=== PATIENT | female | born 1995 | race African-American/Black ===

== ENCOUNTER 2018-05-08 12:37 | Emergency (ER) | payer OTHER ==
[2018-05-08 12:59] VITALS: BP 125/72
--- NOTE | 2018-05-09 07:18 | UC ---
Kaela Otto Elizabeth, scribed for Elis Ramires DO on 05/08/18 at 1333 . Throat Pain/Nasal Sourav HPI - HPI Summary HPI Summary: This patient is a 22 year old F presenting to [facility] with a chief complaint of nonproductive, bronchospastic cough since 7 days ago. The patient notes that her cough has started to interfere with her sleep. The patient rates the pain 4/ 10 in severity. Symptoms aggravated by nothing. Symptoms alleviated by nothing. Patient reports right flank pain, nasal congestion, and a sore throat that resolved 2 days ago. - History of Current Complaint Chief Complaint: UCGeneralIllness Stated Complaint: SORE THROAT,COUGH Time Seen by Provider: 05/08/18 12:39 Hx Obtained From: Patient Hx Last Menstrual Period: 05/07/18 Onset/Duration: Gradual Onset, Lasting Weeks - 1 week, Still Present Severity: Mild Pain Intensity: 4 Pain Scale Used: 0-10 Numeric Cough: Nonproductive Associated Signs & Symptoms: Positive: Nasal Discharge Related History: Seasonal Allergies - Allergies/Home Medications Allergies/Adverse Reactions: Allergies Allergy/AdvReac Type Severity Reaction Status Date / Time No Known Allergies Allergy Verified 05/08/18 12:51 Home Medications: Home Medications Cetirizine HCl [Zyrtec] 10 mg PO DAILY 05/08/18 [History Confirmed 05/08/18] PMH/Surg Hx/FS Hx/Imm Hx Other Respiratory History: seasonal allegies - Surgical History Surgical History: None - Family History Known Family History: Negative: Blood Disorder - Social History Alcohol Use: None Substance Use Type: None Smoking Status (MU): Never Smoked Tobacco - Immunization History Vaccination Up to Date: Yes Review of Systems Constitutional: Negative - NEGATIVE FEVER ENT: Sore Throat, Sinus Congestion Respiratory: Cough Genitourinary: Other - right flank pain All Other Systems Reviewed And Are Negative: Yes Physical Exam - Summary Physical Exam Summary: Appearance: Well-Appearing, No Pain Distress, Well-Nourished Eyes: conjunctiva clear, no discharge ENT: Hearing grossly normal, no muffled/hoarse voice. TMs normal, tonsillar swelling, tonsillar exudates, negative trismus. Nasal sinus congestion, lymphadenopathy, pale boggy nasal mucosa Neck: Normal, Supple Respiratory/Lung Sounds: Lungs clear, Normal breath sounds, No respiratory distress, No accessory muscle use. Prolonged expiration at the bases bilaterally Cardiovascular: RRR, No murmur Abdomen: Nontender, Soft, no guarding, not distended Musculoskeletal: paraspinal tenderness bilaterally R>L, negative CVA tenderness Neurological: Alert, muscle tone normal Psychiatric:Normal, age appropriate behavior Skin: Normal, Warm, Dry, Normal color Triage Information Reviewed: Yes Vital Signs: Initial Vital Signs Temp 98.2 F 05/08/18 12:53 Pulse 78 05/08/18 12:53 Resp 16 05/08/18 12:53 BP 125/72 05/08/18 12:53 Pulse Ox 99 05/08/18 12:53 Vital Signs Reviewed: Yes Throat Pain/Nasal Course/Dx - Course Course Of Treatment: This patient is a 22 year old F reporting nonproductive cough, sore throat, and congestion since 7 days ago. The patients rapid strep test was positive. Patient will be discharged with prescription for albuterol, keflex, Tessalon, and Robitussin. The patient is agreeable with this plan. Medications reviewed. Allergies reviewed. - Differential Dx/Diagnosis Provider Diagnoses: strep throat, bronchospasm, allergies Discharge - Sign-Out/Discharge Documenting (check all that apply): Discharge/Admit/Transfer - Discharge Plan Condition: Stable Disposition: HOME Prescriptions: Albuterol HFA INHALER* [Ventolin HFA Inhaler*] 2 puff INH Q4H PRN #1 mdi PRN Reason: Sob/Wheezing Benzonatate CAP* [Tessalon 100 MG CAP*] 100 mg PO TID #30 cap Cephalexin CAP* [Keflex CAP*] 500 mg PO BID #20 cap guaiFENesin/CODIEN 100MG-10MG* [Robitussin AC 100Mg-10Mg*] 5 - 10 ml PO Q4H PRN #100 udc MDD 10ml PRN Reason: Cough Patient Education Materials: Strep Throat (ED) Referrals: Jake Kramer MD [Primary Care Provider] - If Needed Additional Instructions: TRY USING THE NETTI POT IN THE MORNINGS DISCUSSED. YOU MUST ALWAYS USE CLEAN WATER. REMEMBER, POSTURE IS AN IMPORTANT FACTOR IN SINUS DRAINAGE. MOVE YOUR NECK, BREATHE. INHALED BRONCHODILATORS: You have received a prescription for an inhaled bronchodilator -- a medication which stimulates the airways in the lung to dilate. This improves the flow of air in asthma, bronchitis, and emphysema. These medicines have some similarity to adrenaline, and can cause similar side effects: shakiness, racing heart, and a sense of nervousness. These side effects decrease with time. Contact your doctor if these side effects are severe. Do not over-use the medicine. Too-frequent use of the inhaler may make it ineffective. Call your doctor if the inhaler is not controlling your symptoms at the prescribed doses. COUGH-SUPPRESSANT & EXPECTORANT MEDICATION: You are to use a cough medication as needed for relief of symptoms. This medicine is a combination of an expectorant (to make the mucous thinner and more easily "coughed up") and a cough suppressant (to reduce the frequency of coughing). The cough-suppressant medicine is related to narcotics. You may experience mild nausea and sleepiness. Some patients who are very sensitive to narcotics may have stomach pain from this medicine. Taking the medicine with food reduces these side effects. Do not drive or work with machinery until you know how this medicine affects you. The expectorant should have no side effects. Iodine-containing expectorants (such as organidin) should not be taken by persons with active thyroid disease unless approved by your doctor. Call the doctor if you develop shortness of breath, hives, rash, itching, lightheadedness, or severe nausea and vomiting. EXPECTORANT MEDICATION: WE SENT IN A SCRIPT FOR MUCINEX SO THAT IT IS EASIER FOR YOU TO PICK THE RIGHT MED AT THE PHARMACY. HOWEVER, YOU CAN ALSO GO TO THE [employer] AND BUY PLAIN GUAIFENESIN WITHOU BINDERS OR FILLERS. An expectorant medicine has been prescribed. This type of drug makes mucous thinner, helping the sinuses, nose, and bronchial tubes to remain free of pus and mucous. Expectorants make a cough less severe and more comfortable, and help infected sinuses drain. In general, antihistamines defeat the purpose of the expectorant by making mucous thicker. They should be avoided unless specifically recommended by your physician. TESSALON PERLES: You have received a prescription for Tessalon Perles (benzonatate). This is a non-narcotic medicine for relief of cough. It usually works in about 15- 20 minutes and lasts around four hours. Tessalon Perles should be swallowed. They should not be chewed or dissolved in the mouth (this can produce temporary numbing of the mouth and choking can occur). If you develop any adverse effects such as wheezing, shortness of breath, hives, rash, itching, or lightheadedness, please return at once. CEPHALEXIN: The antibiotic you've been prescribed is a member of the cephalosporin class. This type of antibiotic covers a wide variety of infections, including those of the skin, lungs, and urinary tract. It's useful for staph infections. This antibiotic is slightly similar to the penicillin family. In rare cases , a person who is allergic to penicillin will also be allergic to this medication. If you have had a severe allergic reaction to penicillin, and have not taken this antibiotic since that time, notify your doctor. Antibiotics which cover many germs ("broad spectrum" antibiotics) are more likely to cause diarrhea or "yeast" infections. Women prone to vaginal yeast problems may suffer an attack after taking this antibiotic. In infants, oral thrush (white spots "stuck" on the cheek) or yeast diaper rash may result. See your doctor if these problems occur. Call at once if you develop itching, hives , shortness of breath, or lightheadedness. ANYTIME YOU TAKE AN ANTIBIOTIC, IT IS IMPORTANT TO REPLENISH THE BODY'S SUPPLY OF "GOOD BACTERIA." YOU CAN GET GOOD BACTERIA FROM HIGH QUALITY CULTURED FOODS SUCH LOCAL YOGURT, SOUR KRAUT, TAL [place], NATURALLY FERMENTED PICKLES AND PROBIOTIC DRINKS. YOU CAN ALSO GET GOOD BACTERIA FROM A PROBIOTIC SUPPLEMENT. DISCUSSED, TRY MAGIC MOUTHWASH TO CONTROL PAIN PRIOR TO EATING. - Billing Disposition and Condition Condition: STABLE Disposition: Home The documentation as recorded by the Kaela art Elizabeth accurately reflects the service I personally performed and the decisions made by me, Elis Ramires DO.
== END 2018-05-08 14:03 | disposition home or self-care (01) ==
LOC: UCEAST 12:37
DX: J02.0 Streptococcal pharyngitis (principal); J98.01 Acute bronchospasm; J30.9 Allergic rhinitis, unspecified; R10.9 Unspecified abdominal pain
CPT/HCPCS: 81003; 87086; 87651; 99212; G0463

== ENCOUNTER 2020-03-22 17:00 | Emergency (ER) | payer SELFPAY ==
[2020-03-22 17:22] VITALS: BP 126/84
[2020-03-22] MEDS ORDERED: Ketorolac *IM* INJ 60 MG/2 ML VIAL IM ONE (17:43)
== END 2020-03-22 18:14 | disposition home or self-care (01) ==
LOC: UCEAST 17:00